=== PATIENT | female | born 1990 | race Caucasian/White ===

== ENCOUNTER → 2018-09-29 11:49 | Outpatient (CLI) | payer MEDICARE, MEDICAID, SELFPAY ==
[2018-09-29 13:41] LABS: C-Reactive Protein Quant 1.1 mg/dL (<1.0)
[2018-10-01 23:29] LABS: (tTG) Ab, IgA < 1 U/mL
== END ==
PROVIDERS: PCP Nurse Practitioner; Visit Provider Surgery
DX: K58.9 Irritable bowel syndrome, unspecified (principal)
CPT/HCPCS: 36415; 83516; 86140; 86255

== ENCOUNTER 2018-12-21 19:33 | Emergency (ER) | payer MEDICARE, MEDICAID, SELFPAY ==
[2018-12-21 19:52] VITALS: BP 120/75; PULSE 85; RESP 14; TEMP 36.9; O2SAT 98
--- NOTE | 2018-12-21 21:42 | PC.NURSE ---
Pt angrily left the room and yelled, I'm going to leave so I can kill myself! Pt expressed frustration that she hasn't been seen by a doctor or medicated for her anxiety in the hour that she's been waiting in a room. Dr Carballo saw pt and told her that she was going to see her shortly, she's welcome to stay and be treated. When asked again about SI, pt stated, I feel like I'm having anxiety, I only said that to get your attention so you understand how serious this is. Pt returned to her room to wait to be seen.
--- NOTE | 2018-12-21 21:43 | PC.NURSE ---
Pt asking when doctor will be in to see her. She states she is having anxiety attacks. Starts yelling and saying she is going to leave and commit suicide. Escalating and stating she wants medication for anxiety right now. Explained to patient we have full ED with high acuity and doctor will see as soon as she can. Pt complaining that nobody has checked on her in an hour. Pt heading towards door and stating she is going to leave. Asked pt if she feels like she is wants to hurt herself or others. Patient denies suicidality. States she said that to get attention. Agrees to stay and wait for doctor to see her.
[2018-12-21] MEDS: LORazepam 0.5 MG TABLET 1 MG PO (22:07)
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
[2018-12-21 22:18] VITALS: BP 135/93; PULSE 96; RESP 18; O2SAT 96
== END 2018-12-21 22:34 | disposition home or self-care (01) ==
PROVIDERS: Emergency Provider Emergency Medicine; PCP Nurse Practitioner
DX: F41.9 Anxiety disorder, unspecified (principal)
CPT/HCPCS: 99282; 99283

== ENCOUNTER 2019-02-03 09:40 | Day surgery (SDC) | payer MEDICARE, MEDICAID, SELFPAY ==
--- NOTE | 2019-02-03 | PATH_ITS ---
[facility] Accession Number: [id number] . 01 Material submitted: . PART A: ileum - BIOPSY TERMINAL ILEUM PART B: sigmoid colon - BIOPSY SIGMOID COLON . 01 Clinical history: . HEMORRHAGE OF ANUS AND RECTUM B. EVALUATE FOR INFLAMMATORY BOWEL DISEASE . 02 Diagnosis: A. Biopsy, Terminal Ileum: Superficial portions of small bowel mucosa with no significant histomorphologic abnormality. Negative for active inflammation, granulomas, regions of dysplasia, or malignancy. . B. Biopsy, Sigmoid Colon: Superficial portions of colorectal mucosa with scattered lymphoid aggregates and patchy regions of mucosal erosion. Negative for active inflammation, granulomas, regions of dysplasia, or malignancy. There is no histologic evidence of microscopic colitis. I02/04/2019 . 02 Electronically signed: . Gerri Hou MD, Pathologist NPI- [id number] . 01 Gross description: . Part A: BIOPSY TERMINAL ILEUM: Received in formalin are 3 fragment(s) of wilkerson, soft tissue measuring 0.1 x 0.1 x 0.1 cm to 0.2 x 0.2 x 0.1 cm which is entirely submitted and submitted entirely in 1 cassette(s) Part B: BIOPSY SIGMOID COLON: Received in formalin are multiple fragment(s) of wilkerson, soft tissue measuring 0.1 x 0.1 x 0.1 cm to 0.4 x 0.2 x 0.2 cm which is entirely submitted and submitted entirely in 1 cassette(s) /[facility] /[facility] . 02 Pathologist provided ICD-10: K62.5 . 02 CPT . 292543, 178159 Performed at: [facility], [place], [place] [id number] MD Pilo Merritt MD Phone: [phone] Performed at: 02 [facility] [place] [address] [address] [place] [id number] MD Lanie De MD Phone: [phone]
[2019-02-03] MEDS: LACTATED RINGERS 1,000 ML 42 ML IV (10:22)
[2019-02-03 10:25] VITALS: BP 99/69; PULSE 98; RESP 18; TEMP 36.6; O2SAT 97; BMI 83.5
--- NOTE | 2019-02-03 11:19 | PM.HP.1 ---
History of Present Illness History of Present Illness Date Patient Seen: 02/03/19 Time Patient Seen: 11:19 Chief complaint: [id number] Narrative: Patient seen and examened Diagnostic colonoscopy today Unchanged from recent clinic note Patient History Family & Social History Social History: household members children Tobacco & Substance use: Smoking Status Current every day smoker alcohol intake current alcohol intake frequency 0-2 drinks per day Substance Use Type does not use Meds Home Medications and Allergies Home Medications Medication Instructions Recorded Confirmed Type aripiprazole 20 mg tablet 10 mg PO QDAY #0 tab 09/23/18 02/03/19 History lidocaine 4 % topical gel 1 applictn TOP QD-TID PRN #30 gram 09/23/18 02/03/19 Rx sertraline 100 mg tablet 125 mg PO QDAY #0 tab 09/23/18 02/03/19 History lorazepam [Ativan] 0.5 mg PO Q12HR PRN #1 tab 12/21/18 02/03/19 Rx dicyclomine 20 mg tablet 20 mg PO QID PRN #120 tab 01/21/19 02/03/19 Rx loperamide 2 mg capsule 2 mg PO QID PRN #120 cap 01/21/19 02/03/19 Rx Allergies Allergy/AdvReac Type Severity Reaction Status Date / Time dextromethorphan Allergy Unknown Verified 12/21/18 19:55 [DEXTROMETHORPHAN] lithium [LITHIUM] Allergy Unknown psycosis Verified 12/21/18 19:55 Exam Vital Signs (past 8 hours): - 02/03/19 10:25 Temperature 97.8 F Pulse Rate 98 H Respiratory Rate 18 Blood Pressure 99/69 Pulse Oximetry 97 Oxygen Delivery Method Room Air
[2019-02-03 12:00] VITALS: BP 112/71; PULSE 95; RESP 15; TEMP 36.2; O2SAT 94
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
[2019-02-03 12:05] VITALS: BP 110/66; PULSE 91; RESP 16; O2SAT 95
[2019-02-03 12:10] VITALS: BP 104/63; PULSE 87; RESP 12; O2SAT 98
[2019-02-03 12:15] VITALS: BP 110/64; PULSE 81; RESP 14; TEMP 36; O2SAT 100
[2019-02-03 12:24] VITALS: BP 123/71; PULSE 80; RESP 17; TEMP 36.2; O2SAT 98
== END 2019-02-03 12:39 | disposition home or self-care (01) ==
PROVIDERS: Visit Provider Surgery
PROC: 0DJD8ZZ Inspection of Lower Intestinal Tract, Via Natural or Artificial Opening Endoscopic (ICD-10-PCS; CPT 45378; principal; 2019-02-03 11:15)
DX: R19.7 Diarrhea, unspecified (principal); K60.2 Anal fissure, unspecified; F17.210 Nicotine dependence, cigarettes, uncomplicated; E66.01 Morbid (severe) obesity due to excess calories; Z68.45 Body mass index [BMI] 70 or greater, adult; F41.9 Anxiety disorder, unspecified
CPT/HCPCS: 45380; J0330; J1100; J2405; J2704; J3010

== ENCOUNTER 2019-06-06 16:33 | Emergency (ER) | payer MEDICARE, MEDICAID, SELFPAY ==
[2019-06-06 17:06] VITALS: BP 142/82; PULSE 88; RESP 16; TEMP 36.8; O2SAT 98; BMI 38.9
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
[2019-06-06 17:59] LABS: Influenza A - CEPHEID Flu A NEGATIVE (NEGATIVE); Influenza B - CEPHEID Flu B NEGATIVE (NEGATIVE)
[2019-06-06] MEDS: predniSONE 20 MG TABLET 40 MG PO (18:00)
[2019-06-06] MEDS: BENZONATATE 100 MG CAPSULE PO (18:01)
== END 2019-06-06 18:47 | disposition home or self-care (01) ==
PROVIDERS: Emergency Provider Nurse Practitioner Family; PCP Nurse Practitioner
DX: J06.9 Acute upper respiratory infection, unspecified (principal)
CPT/HCPCS: 87502; 99281; 99283

== ENCOUNTER 2019-07-18 19:08 | Emergency (ER) | payer MEDICARE, MEDICAID, SELFPAY ==
[2019-07-18 19:18] VITALS: BP 136/89; PULSE 96; RESP 18; TEMP 36.4; O2SAT 99; BMI 38.9
== END 2019-07-18 21:36 | disposition left against medical advice (07) ==
PROVIDERS: Emergency Provider Emergency Medicine; PCP Nurse Practitioner
CPT/HCPCS: 99281

== ENCOUNTER 2020-08-01 00:31 | Emergency (ER) | payer MEDICARE, MEDICAID, SELFPAY ==
[2020-08-01 00:39] VITALS: BP 120/75; PULSE 105; RESP 18; TEMP 37; O2SAT 96; BMI 44.1
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
== END 2020-08-01 02:43 | disposition left against medical advice (07) ==
PROVIDERS: Emergency Provider Emergency Medicine; PCP Nurse Practitioner
CPT/HCPCS: 99281

== ENCOUNTER 2020-08-03 20:16 | Emergency (ER) | payer MEDICARE, MEDICAID, SELFPAY ==
[2020-08-03 20:23] VITALS: BP 135/83; PULSE 100; RESP 22; TEMP 36.4; O2SAT 98; BMI 44.1
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
[2020-08-03] MEDS: LIDOCAINE JELLY 2% 5 ML 1 APPLIC TOP (21:21)
== END 2020-08-03 21:26 | disposition home or self-care (01) ==
PROVIDERS: Emergency Provider Emergency Medicine; PCP Nurse Practitioner
DX: K59.00 Constipation, unspecified (principal)
CPT/HCPCS: 99281

== ENCOUNTER 2021-06-06 16:30 | Emergency (ER) | payer MEDICARE, MEDICAID, SELFPAY ==
[2021-06-06 16:36] VITALS: BP 111/65; PULSE 110; RESP 22; TEMP 36.9; O2SAT 98
[2021-06-06 17:36] LABS: Add Manual Diff / Slide Review NO; Basophils Absolute Auto 100 /uL (0-100); Basophils Percent Auto 0.6 % (0-2); Eosinophils Absolute Auto 100 /uL (0-450); Eosinophils Percent Auto 0.6 % (2-4); Hematocrit 42.5 % (36-46); Hemoglobin 14.5 g/dL (12.0-16.0); Lymphocytes Absolute Auto 2000 /uL (1100-4500); Mean Corpuscular HGB Conc 34.2 % (30-36); Mean Corpuscular Hemoglobin 31.9 PG (26-34); Mean Corpuscular Volume 93.3 fL (80-100); Monocytes Absolute Auto 600 /uL (0-900); Neutrophils Absolute Auto 12700 /uL (1500-7000); Neutrophils Percent Auto 81.8 % (50-75); Platelet Count 358 X10^3/uL (150-400); Red Blood Cell Count 4.56 X10^6/uL (4.0-5.2); Red Cell Distribution Width 13.2 % (11.6-14.8); White Blood Cell Count 15.5 X10^3/uL (4.5-11.0)
[2021-06-06 17:43] LABS: Alanine Aminotransferase 23 IU/L (<35); Albumin 4.3 g/dL (3.5-5.0); Albumin Globulin Ratio 1.1 (1.0-2.8); Alkaline Phosphatase 76 U/L (38-126); Aspartate Aminotransferase 24 IU/L (14-36); BUN Creatinine Ratio 15.1 (6-22); Bilirubin Total 0.5 mg/dL (0.2-1.3); Blood Urea Nitrogen 8 mg/dL (7-17); Calcium 9.5 mg/dL (8.4-10.2); Carbon Dioxide 30 mmol/L (22-32); Chloride 105 mmol/L (98-107); Estimated Glomerular Filt Rate > 60.0 mL/min (>60); Globulin 3.9 g/dL (1.7-4.1); Glucose 110 mg/dL (70-100); HEMOLYSIS < 15 (0-50); Lipase 29 U/L (23-300); Potassium 3.9 mmol/L (3.4-5.1); Sodium 138 mmol/L (137-145); Total Protein 8.2 g/dL (6.3-8.2)
== END 2021-06-06 20:06 | disposition left against medical advice (07) ==
PROVIDERS: Emergency Provider Emergency Medicine; PCP Nurse Practitioner
DX: Z53.21 Procedure and treatment not carried out due to patient leaving prior to being seen by health care provider (principal)
CPT/HCPCS: 80053; 81003; 81025; 83690; 85025; 99282

== ENCOUNTER 2022-08-10 22:24 | Emergency (ER) | payer MEDICARE, MEDICAID, SELFPAY ==
[2022-08-10 22:25] VITALS: BP 173/102; PULSE 107; RESP 18; TEMP 36.7; O2SAT 96; BMI 45.5
[2022-08-10 22:28] VITALS: BP 173/102; PULSE 107; O2SAT 92
[2022-08-10] MEDS: LIDOCAINE PATCH 1 EACH ADH..PATCH TOP (22:45)
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
== END 2022-08-10 22:48 | disposition home or self-care (01) ==
PROVIDERS: Emergency Provider Emergency Medicine; PCP Nurse Practitioner
DX: M62.838 Other muscle spasm (principal)
CPT/HCPCS: 99282; 99283